=== PATIENT | female | born 1990 | race Hispanic/Latino ===

== ENCOUNTER 2021-02-13 12:26 | Emergency (ER) | payer OTHER | END 2021-02-13 12:53 | disposition home or self-care (01) | LOC: MADERS 12:26 | DX: K02.9 Dental caries, unspecified (principal); K08.89 Other specified disorders of teeth and supporting structures; J45.909 Unspecified asthma, uncomplicated; Z79.899 Other long term (current) drug therapy; Z79.891 Long term (current) use of opiate analgesic | CPT/HCPCS: 99282 ==

== ENCOUNTER 2021-03-11 09:33 | Emergency (ER) | payer OTHER ==
[2021-03-12 01:05] LABS: SARS-CoV-2 PCR by NAA Not Detected (NotDetected)
== END 2021-03-11 11:32 | disposition home or self-care (01) ==
LOC: MADERS 09:33
DX: R05 Cough (principal); R53.81 Other malaise; Z20.822 Contact with and (suspected) exposure to COVID-19; J45.909 Unspecified asthma, uncomplicated
CPT/HCPCS: 71045; U0003; U0005

== ENCOUNTER 2021-03-24 17:51 | Emergency (ER) | payer OTHER ==
[2021-03-24] MEDS ORDERED: Ketorolac Tromethamine 30 MG/ML VIAL ONE (18:58)
[2021-03-24] MEDS ORDERED: Boostrix 0.5 ML (Tdap) VIAL ONE (18:58)
== END 2021-03-24 19:48 | disposition home or self-care (01) ==
LOC: MADERS 17:51
DX: S50.11XA Contusion of right forearm, initial encounter (principal); S80.11XA Contusion of right lower leg, initial encounter; J45.909 Unspecified asthma, uncomplicated; F17.210 Nicotine dependence, cigarettes, uncomplicated; W18.30XA Fall on same level, unspecified, initial encounter; Y92.009 Unspecified place in unspecified non-institutional (private) residence as the place of occurrence of the external cause
CPT/HCPCS: 90471; 90715; 96372; J1885

== ENCOUNTER 2021-08-08 00:51 | Emergency (ER) | payer OTHER | END 2021-08-08 01:50 | disposition home or self-care (01) | LOC: MADERS 00:51 | DX: S60.222A Contusion of left hand, initial encounter (principal); F17.210 Nicotine dependence, cigarettes, uncomplicated; J45.909 Unspecified asthma, uncomplicated; X50.0XXA Overexertion from strenuous movement or load, initial encounter ==